=== PATIENT | female | born 1990 | race Caucasian/White ===

== ENCOUNTER 2019-12-26 16:51 | Inpatient (IN) ==
[2019-12-26] MEDS ORDERED: Naloxone 0.4 MG/ML INJ IVP PRN (17:00)
[2019-12-26] MEDS ORDERED: Metoclopramide 10 MG/2 ML VIAL IVP PRN (17:00)
[2019-12-26] MEDS ORDERED: Ondansetron 4 MG/2 ML VIAL IVP PRN (17:00)
[2019-12-26] MEDS ORDERED: Famotidine 20 MG/2 ML VIAL IVP PRN (17:00)
[2019-12-26] MEDS ORDERED: *HR* FentaNYL (PF) 100 MCG/2 ML VIAL IVP PRN (17:00)
[2019-12-26] MEDS ORDERED: Penicillin G Potassium 5,000,000 UNIT in 0.9 % Sodium Chloride Mini Bag 100 ML IVPB ONE (17:00)
[2019-12-26] MEDS ORDERED: Ringers Solution, Lactated 1,000 ML IVC SCH (17:00)
[2019-12-26] MEDS ORDERED: Azithromycin 500 MG in 0.9 % Sodium Chloride 250 ML IVPB ONE ×2 (17:00→23:00)
[2019-12-26] MEDS ORDERED: miSOPROStoL 25 MCG TABLET PO PRN (17:28)
[2019-12-26 17:41] LABS: Basophils # 0.1 K/mcL (0.0-0.2); Basophils % 0.5 %; Eosinophils # 0.1 K/mcL (0.0-0.6); Eosinophils % 0.7 %; Hematocrit 38.1 % (35.3-44.9); Hemoglobin 13.3 g/dL (11.5-15.4); Lymphocytes # 2.7 K/mcL (0.6-4.6); Lymphocytes % 21.8 %; Mean Corpuscular HGB Conc 34.9 g/dL (31.6-35.5); Mean Corpuscular Hemoglobin 30.2 pg (28.0-33.3); Mean Corpuscular Volume 86.6 fL (83.0-100.0); Mean Platelet Volume 10.9 fL (9.4-12.4); Monocytes # 1.1 K/mcL (0.0-1.3); Monocytes % 9.3 %; Neutrophils # 8.2 K/mcL (1.6-8.9); Platelet Count 182 K/mcL (140-400); Red Cell Distribution Width 12.9 % (11.5-14.5); Segmented Neutrophils % 66.7 %; White Blood Count 12.2 K/mcL (4.3-11.1)
[2019-12-26 17:50] LABS: Amphetamine Screen,Urine Negative ng/mL (Cutoff=1000); Barbiturate Screen,Urine Negative ng/mL (Cutoff=200); Benzodiazepines Screen,Urine Negative ng/mL (Cutoff=200); Cannabinoid Screen,Urine Negative ng/mL (Cutoff = 50); Cocaine Screen,Urine Negative ng/mL (Cutoff= 300); Opiate Screen,Urine Negative ng/mL (Cutoff=300); Phencyclidine Screen,Urine Negative ng/mL (Cutoff=25)
[2019-12-26] MEDS ORDERED: Ropivacaine/PF 0.2% 20 ML VIAL EP ONE (18:36)
[2019-12-26] MEDS ORDERED: EPHEDrine 50 MG/ML VIAL IVP PRN ×2 (18:36→22:25)
[2019-12-26] MEDS ORDERED: *HR* FentaNYL (PF) 100 MCG/2 ML VIAL EP ONE ×2 (18:36→22:25)
[2019-12-26] MEDS ORDERED: *HR* FentaNYL (PF) 100 MCG/2 ML VIAL ONE (18:40)
[2019-12-26] MEDS ORDERED: Ropivacaine/PF 0.2% 20 ML VIAL ONE (18:40)
[2019-12-26] MEDS ORDERED: Epidural Premix (fent/bupiv) 110 ML EP SCH (18:45)
[2019-12-26] MEDS ORDERED: Penicillin G Potassium 2,500,000 UNIT/105 ML MLS IVPB SCH (20:00)
[2019-12-26] MEDS ORDERED: D5% in Lactated Ringers 1,000 ML IVC SCH (23:00)
[2019-12-26] MEDS ORDERED: Terbutaline 1 MG/ML VIAL SQ ONE (23:14)
[2019-12-26] MEDS ORDERED: Lidocaine 1% 20 ML MDV ONE (23:30)
[2019-12-26] MEDS ORDERED: Oxytocin 20 units/ LR 1000 mL 20 UNIT/1,000 ML BAG IVC ONE (23:41)
[2019-12-27] MEDS ORDERED: *HR* HYDROmorphone (PF) 1 MG/ML SYRINGE ONE (00:35)
[2019-12-27] MEDS ORDERED: *HR* FentaNYL (PF) 250 MCG/5 ML VIAL ONE (00:39)
[2019-12-27] MEDS ORDERED: *HR* Propofol 200 MG/20 ML VIAL IVP ONE ×2 (00:40→00:56)
[2019-12-27] MEDS ORDERED: Lidocaine -MPF 2% 5 ML VIAL ONE (00:41)
[2019-12-27] MEDS ORDERED: *HR* Midazolam HCl 2 MG/2 ML VIAL ONE (00:41)
[2019-12-27] MEDS ORDERED: Oxytocin 20 units/ LR 1000 mL 20 UNIT/1,000 ML BAG IVC ONE (00:57)
[2019-12-27] MEDS ORDERED: Benzocaine/Menthol 56 GM AEROSOL SPRAY TP PRN (04:01)
[2019-12-27] MEDS ORDERED: Lanolin 7 G OINT...G. TP PRN (04:01)
[2019-12-27] MEDS ORDERED: Oxytocin 20 units/ LR 1000 mL 20 UNIT/1,000 ML BAG IVC SCH (04:01)
[2019-12-27] MEDS ORDERED: *HR* HYDROcodone/Acet 5/325 mg TABLET PO PRN (04:01)
[2019-12-27] MEDS ORDERED: Measles/Mumps/Rubella Vacc 0.5 ML VIAL SQ PRN (04:01)
[2019-12-27] MEDS ORDERED: Acetaminophen 325 MG TABLET PO PRN (04:01)
[2019-12-27] MEDS ORDERED: Rho Immune Globulin 1,500 UNIT SYRINGE IM PRN (04:01)
[2019-12-27] MEDS: Ibuprofen 600 MG TABLET PO PRN ×3 (04:59→20:36)
[2019-12-27] MEDS: Prenatal Vit/FA 1 EACH TABLET PO SCH (09:07)
[2019-12-27] MEDS ORDERED: Methylergonovine 0.2 MG/ML AMPUL IM ONE (10:19)
[2019-12-28 06:29] LABS: Basophils # 0.1 K/mcL (0.0-0.2); Basophils % 0.6 %; Eosinophils # 0.1 K/mcL (0.0-0.6); Eosinophils % 1.4 %; Hematocrit 25.7 % (35.3-44.9); Immature Granulocytes % 0.8 % (0-4); Lymphocytes # 2.8 K/mcL (0.6-4.6); Lymphocytes % 28.3 %; Mean Corpuscular Hemoglobin 31.1 pg (28.0-33.3); Mean Corpuscular Volume 88.9 fL (83.0-100.0); Mean Platelet Volume 10.1 fL (9.4-12.4); Monocytes # 0.9 K/mcL (0.0-1.3); Monocytes % 8.6 %; Platelet Count 131 K/mcL (140-400); Red Blood Count 2.89 M/mcL (3.82-4.97); Red Cell Distribution Width 13.2 % (11.5-14.5); Segmented Neutrophils % 60.3 %
[2019-12-28 08:00] VITALS: BP 95/56
[2019-12-28] MEDS: Prenatal Vit/FA 1 EACH TABLET PO SCH (08:07)
[2019-12-28] MEDS: Ibuprofen 600 MG TABLET PO PRN (08:08)
[2019-12-28] MEDS ORDERED: Magnesium Sulfate 1 EACH PACKAGE TP SCH (10:30)
== END 2019-12-28 12:39 | disposition home or self-care (01) | DRG 807 ==
LOC: 1NENULAB → 1NENUOBS 12-27 03:52
PROVIDERS: ADMIT Advanced Practice Midwife; ATTEND Advanced Practice Midwife